=== PATIENT | female | born 1990 | race African-American/Black ===

== ENCOUNTER 2017-03-16 20:18 | Emergency (ER) | payer OTHER ==
--- NOTE | 2017-03-16 20:27 | PDOC ---
Rapid Medical Evaluation Time Seen by Provider: 03/16/17 20:22 Medical Evaluation: 03/16/17 20:22 The patient presents with a chief complaint of: itching eyes with bumps. Also reports that they are swollen. Started at 4pm. No new exposures. Denies sob, lip /tongue swelling, difficulty swallowing, difficulty breathing I have performed a brief in-person evaluation of this patient; Pertinent physical exam findings: Swollen eye lids, EOMI, CTAB I have ordered the following: Nothing The patient will proceed to the ED for further evaluation.
[2017-03-16 20:28] VITALS: BP 157/110; PULSE 74; TEMP 98.6; BMI 28.1
[2017-03-16] MEDS ORDERED: diphenhydrAMINE HCL 25 MG CAPSULE (FP) PO STA (20:57)
[2017-03-16] MEDS ORDERED: diphenhydrAMINE HCL 25 MG CAPSULE (FP) PO ONE (21:05)
--- NOTE | 2017-03-16 21:07 | PDOC ---
History of Present Illness - General Chief Complaint: Allergic Reaction Stated Complaint: ALLERGIC REACTION Time Seen by Provider: 03/16/17 20:22 History Source: Patient - History of Present Illness Initial Comments: 03/16/17 21:02 26 yr female with c/o rash to face unsure what caused it may have been clams or flounder. Pt has allergy to seafood but can tolerate most. Pt basil sob no trouble breathing or swallowing. symptoms started at 4p today no meds taken. Pt ate clams last night and flounder tonight after the rash. Past History - Past Medical History Allergies/Adverse Reactions: Allergies Allergy/AdvReac Type Severity Reaction Status Date / Time shellfish derived Allergy Unknown Verified 03/16/17 20:46 Home Medications: Ambulatory Orders Prednisone [Deltasone -] 20 mg PO DAILY #3 tablet 03/16/17 COPD: No - Suicide/Smoking/Psychosocial Hx Smoking History: Never smoked Have you smoked in the past 12 months: No Information on smoking cessation initiated: No Hx Alcohol Use: No Drug/Substance Use Hx: No Substance Use Type: None Review of Systems - Review of Systems Able to Perform ROS?: Yes HEENTM: No: Symptoms Reported Respiratory: No: Symptoms reported ABD/GI: No: Symptoms Reported : No: Symptoms Reported Musculoskeletal: No: Symptoms Reported Integumentary: Yes: Symptoms Reported *Physical Exam - Vital Signs Last Vital Signs Temp Pulse Resp BP Pulse Ox 98.6 F 74 16 157/110 100 03/16/17 20:21 03/16/17 20:21 03/16/17 20:21 03/16/17 20:21 03/16/17 20:21 - Physical Exam General Appearance: Yes: Nourished, Appropriately Dressed HEENT: positive: EOMI, SABAS, Normal ENT Inspection, TMs Normal, Pharynx Normal Neck: positive: Supple. negative: Tender Respiratory/Chest: positive: Lungs Clear, Normal Breath Sounds. negative: Wheezing Cardiovascular: positive: Regular Rhythm, Regular Rate Gastrointestinal/Abdominal: positive: Normal Bowel Sounds, Soft Musculoskeletal: positive: Normal Inspection Extremity: positive: Normal Capillary Refill, Normal Inspection, Normal Range of Motion Integumentary: positive: Rash (face with erythema, mild swelling around the eyes , maculopapular ) Neurologic: positive: Fully Oriented, Alert, Normal Mood/Affect, Normal Response , Motor Strength 5/5 Medical Decision Making - Medical Decision Making 03/16/17 21:04 cc: itchy red rash to face no other areas started at 4pm no new cleansers or makeup no diff breathing or speaking will give benadryl will prescribe prednisone low dose for 3 days cool water to bathe *DC/Admit/Observation/Transfer Diagnosis at time of Disposition: Allergic reaction Qualifiers: Encounter type: initial encounter Qualified Code(s): T78.40XA - Allergy, unspecified, initial encounter - Discharge Dispostion Disposition: HOME Condition at time of disposition: Good - Prescriptions Prescriptions: Prednisone [Deltasone -] 20 mg PO DAILY #3 tablet - Referrals - Patient Instructions Additional Instructions: drink pleanty of water cool cloths to the face, cool water take benadryl 25-50mg every 6hrs for itching, redness take the prednsione as prescribed for 3 days follow with the swatch cutter if not improiving return to ER if worse or any trouble breathing - Post Discharge Activity
== END 2017-03-16 21:29 | disposition home or self-care (01) ==
LOC: JERFT 20:18
DX: T78.40XA Allergy, unspecified, initial encounter (principal)
CPT/HCPCS: 99281-25